=== PATIENT | female | born 1960 | race Caucasian/White ===

== ENCOUNTER 2017-11-20 13:21 | Inpatient (IN) | payer OTHER ==
[~2017-11-20] VITALS: Ht 160 cm; Wt 75.0 kg
[~2017-11-20 13:21] MED LIST: AUGMENTIN 500-1 EACH PO; CIPRO500 M1 PO; FLAGYL500 MG PO; PERCOCET 5-3251 EACH PO; TRAMADOL HCL50 M1 PO; VIBRAMYCIN100 MG PO
--- NOTE | 2017-11-20 13:54 | ED PSYCHIATRIC COMPLAINT ---
History of Present Illness General Chief Complaint: Psychiatric Related Complaint Stated Complaint: +SI Source: patient Exam Limitations: no limitations Vital Signs & Intake/Output Vital Signs & Intake/Output Vital Signs Date Time Temp Pulse Resp B/P B/P Pulse O2 O2 Flow FiO2 Mean Ox Delivery Rate 11/20 1930 98.1 74 16 124/78 98 Room Air 11/20 1724 98.5 68 18 120/70 98 Room Air 11/20 1541 98.1 80 16 128/84 99 Room Air 11/20 1348 Room Air 11/20 1334 98.4 76 14 130/86 Allergies Coded Allergies: nitrofurantoin (From MACRODANTIN) (Severe, SOB 03/27/16) amoxicillin (From AUGMENTIN) (Mild, LIGHT SENSITIVITY R/T HX OF SJOGRENS SYNDROME 03/27/16) clavulanic acid (From AUGMENTIN) (Mild, LIGHT SENSITIVITY R/T HX OF SJOGRENS SYNDROME 03/27/16) latex (Mild, RASH 03/27/16) Reconcile Medications Ciprofloxacin HCl (Cipro) 500 MG TABLET 1 TAB PO BID DIVERTICULITIS Doxycycline Hyclate (Vibramycin) 100 MG CAPSULE 1 CAP PO BID DOG BITE Metronidazole (Flagyl) 500 MG TABLET 1 TAB PO BID DIVERTICULITIS Metronidazole (Flagyl) 500 MG TABLET 1 TAB PO TID DOG BITE Oxycodone HCl/Acetaminophen (Percocet 5-325 MG Tablet) 5 MG-325 MG TABLET 1 TAB PO BID PRN PAIN Tramadol HCl 50 MG TABLET 1 TAB PO BIDP PRN PAIN Triage Note: PT BIBA VOLUNTARILY FROM MD OFFICE WITH C/O +SI. PT STATES NO PLAN, BUT HAS PREVIOUS ATTEMPTS BY OD ON SLEEPING PILLS. VSS. PT ARRIVES A&O, TEARFUL Triage Nurses Notes Reviewed? yes Onset: Abrupt Duration: week(s):, constant, getting worse Timing: recent history Severity: moderate, severe HPI: 57-year-old female comes into the emergency room for further evaluation of the depression and hopelessness. She reports that she has not been doing well for quite some time. She has a lot of stressors in her life. She lost her job of 30 years as well as her relationship.. She lost her mother. Denies any alcohol or drug use. She is very overwhelmed does not know how she is going to do everything. Lives by herself. According to report there was some SI comments made. (Jean PA,Buckner) Past History Medical History Any Pertinent Medical History? 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 No (Percy Oliver) Review of Systems Review of Systems Constitutional: Reports: no symptoms. EENTM: Reports: no symptoms. Respiratory: Reports: no symptoms. Cardiovascular: Reports: no symptoms. GI: Reports: no symptoms. Genitourinary: Reports: no symptoms. Musculoskeletal: Reports: no symptoms. Skin: Reports: no symptoms. Neurological/Psychological: Reports: see HPI. Hematologic/Endocrine: Reports: no symptoms. Immunologic/Allergic: Reports: no symptoms. All Other Systems: Reviewed and Negative (Percy Oliver) Physical Exam Physical Exam General Appearance: well developed/nourished, mild distress Head: atraumatic Eyes: Bilateral: normal appearance. Ears, Nose, Throat: normal ENT inspection, hearing grossly normal Neck: normal inspection Respiratory: no respiratory distress Cardiovascular: regular rate/rhythm Extremities: normal range of motion Neurological/Psychiatric: alert, normal mood/affect Appearance/Memory/Insight: appropriate appearance Behavoir/Eye Contact/Speech: cooperative Thoughts/Hallucinations: no apparent hallucination Skin: intact, normal color, warm/dry SAD PERSONS SAD PERSONS Response Value Age <19 or >45 years? yes 1 Depression/Hopelessness? yes 2 Rational Thinking Loss? yes 2 Single//? yes 1 Total 6 SAD PERSONS Done? yes (Percy Oliver) Progress Differential Diagnosis: dementia, drug intoxication, drug overdose, drug withdrawal Plan of Care: Orders Procedure Date/time Status Regular Diet 11/21 B Active Regular Diet 11/20 D Complete Lab Add-on Test 11/20 1616 Active URINE 11/20 1615 Active Patient Data - inpatient psych 11/20 1605 Active Admit to inpatient psych 11/20 1605 Active Intake & Output 11/20 1543 Active TSH REFLEX 11/20 1409 Active LIPID PANEL 11/20 1409 Active GLYCOSYLATED HGB 11/20 1409 Active ED CRISIS PSYCH CONSULT 11/20 1405 Active Continuous Observation Monitor 11/20 1324 Active URINE DRUGS OF ABUSE 11/20 1324 Complete ETHANOL 11/20 1324 Active COMPREHENSIVE METABOLIC PANEL 11/20 1324 Active CBC WITHOUT DIFFERENTIAL 11/20 1324 Complete Vital Signs 11/20 UNK Active Nursing Misc 11/20 UNK Active Alternative Nursing Therapy 11/20 UNK Active Activity/Ambulation 11/20 UNK Active Current Medications Sig/Deny Start time Last Medication Dose Stop Time Status Admin Desvenlafaxine 100 MG DAILY 11/21 09 AC Succinate (Pristiq) Estrogens Conjugated 0.625 MG DAILY 11/21 09 AC (Premarin) Cyclosporine 1 GTT Q12 11/20 2099 AC (Restasis Ophth Emulsion) Gabapentin 400 MG AT BEDTIME 11/20 2100 AC (Neurontin) Non-Formulary 1 UNIT TID 11/20 2100 UNVr Medication (NON FORMULARY) Diphenhydramine HCl 25 MG Q6P PRN 11/20 1630 AC (Benadryl) Diphenhydramine HCl 25 MG Q6P PRN 11/20 1630 AC (Benadryl) Acetaminophen 650 MG Q6P PRN 11/20 1615 AC (Tylenol) Al Hydroxide/Mg 30 ML Q4-6 PRN PRN 11/20 1615 AC Hydroxide (Maalox Plus) Haloperidol 5 MG Q6P PRN 11/20 1615 AC (Haldol) Haloperidol 5 MG Q6P PRN 11/20 1615 AC (Haldol) Lorazepam 2 MG Q6P PRN 11/20 1615 AC (Ativan) Lorazepam 0.5 MG Q8P PRN 11/20 1615 AC (Ativan) 11/27 1614 Magnesium Hydroxide 30 ML AT BEDTIME PRN 11/20 1615 AC (Milk Of Magnesia) Laboratory Tests 11/20/17 1428: Urine Opiates Screen < 100, Methadone Screen 41, Barbiturate Screen < 60, Ur Phencyclidine Scrn < 6.00, Amphetamines Screen < 100, U Benzodiazepines Scrn < 85, Urine Cocaine Screen < 50, Urine Cannabis Screen < 5.00 11/20/17 1409: Anion Gap 9, Estimated GFR > 60, BUN/Creatinine Ratio 18.3, Glucose 86, Hemoglobin A1c Pending, Calcium 9.7, Total Bilirubin 0.7, AST 19, ALT 17, Alkaline Phosphatase 79, Total Protein 7.4, Albumin 4.6, Globulin 2.8, Albumin/ Globulin Ratio 1.6, Triglycerides 81, Cholesterol 247 H, LDL Cholesterol, Calc 121, HDL Cholesterol 131 H, Cholesterol/HDL Ratio 1.9, TSH &T3 &Free T4 Intrp 1.030, CBC w Diff NO MAN DIFF REQ, RBC 4.63, MCV 88.3, MCH 30.0, MCHC 34.0, RDW 13.2, MPV 8.4, Gran % 67.3, Lymphocytes % 24.6, Monocytes % 6.5, Eosinophils % 1.0, Basophils % 0.6, Absolute Granulocytes 4.5, Absolute Lymphocytes 1.6, Absolute Monocytes 0.4, Absolute Eosinophils 0.1, Absolute Basophils 0, Serum Alcohol < 10.0 (Percy Oliver) Departure Departure Disposition: STILL A PATIENT Condition: Stable Clinical Impression Primary Impression: Depression Referrals: Kym ECHEVERRIA,Tonia Robertson (PCP/Family) Departure Forms: Customer Survey General Discharge Information Psych Admission Note Psychiatric Admission: I have seen and evaluated RUSSELL PITT. I have also reviewed all the pertinent lab results and diagnostic results. RUSSELL PITT will be admitted to our inpatient Psychiatric unit for treatment and care. (Percy Oliver) PA/INSPECTOR INSULATION Co-Sign Statement Statement: ED Attending supervision documentation- [] I saw and evaluated the patient. I have also reviewed all the pertinent lab results and diagnostic results. I agree with the findings and the plan of care as documented in the PA's/INSPECTOR INSULATION's documentation. [X] I have reviewed the ED Record and agree with the PA's/INSPECTOR INSULATION's documentation. [] Additions or exceptions (if any) to the PAs/INSPECTOR INSULATION's note and plan are summarized below: [] (Sanjay Oh DO
--- NOTE | 2017-11-20 14:30 | ED PSY CRISIS COLLATERAL NOTE ---
Collateral Note Collateral Note Family/Inform/Shaun Contacts: Patient's treating psychiatrist, Dr. Saenz referred patiient to [facility] , reporting that patient was extremely anxious and depressed, and feeling helpless, hopeless and overwhelmed. Patient has required hospitalization many times in the past. Patient has diagnosis of Mood disorder, with depression and bipolar disorder. Patient reports that she has constant pain issues, and is in a desperate place. Patient recently changed the locks on all her doors for safety.
[2017-11-20 14:35] LABS: ABSOLUTE BASOPHIL COUNT 0 /CUMM (0.0-0.2); ABSOLUTE EOSINOPHIL COUNT 0.1 /CUMM (0.0-0.7); ABSOLUTE GRANULOCYTE CT 4.5 /CUMM (1.4-6.5); ABSOLUTE LYMPH COUNT 1.6 /CUMM (1.2-3.4); ABSOLUTE MONOCYTE COUNT 0.4 /CUMM (0.10-0.60); BASOPHIL % 0.6 % (0.0-2.0); GRANULOCYTE % 67.3 % (42.2-75.2); HEMATOCRIT 40.9 % (37-47); MEAN CORPUSCULAR VOLUME 88.3 FL (81.0-99.0); MEAN PLATELET VOLUME 8.4 FL (7.4-10.4); PLATELET COUNT 304 /CUMM (130-400); RBC DISTRIBUTION WIDTH 13.2 % (11.5-14.5); RED BLOOD CELL CT 4.63 /CUMM (4.20-5.40); WHITE BLOOD CELL COUNT 6.6 /CUMM (4.8-10.8)
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
[2017-11-20 21:30] VITALS: BP 152/76
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
--- NOTE | 2017-11-20 23:27 | Admission Certification ---
Admission Certification Certification Statement - As attending physician, I certify that at the time of - admission, based on clinical presentation, severity of - symptoms, need for further diagnostic testing and - therapeutic interventions, and risk of adverse outcomes - without in-hospital treatment, in my clinical assessment, - this patient requires an acute hospital stay for a minimum - of two nights or longer. I have also considered psychsocial - factors such as support system, advanced age, financial - issues, cognitive issues, and failed out-patient treatments, - past re-admission history, safety of patient, and lack of - compliance as applicable. Specific rationale supporting this admission is: Depression
[2017-11-20] MEDS ORDERED: GABAPENTIN400 M2 PO (23:56)
[2017-11-20] MEDS ORDERED: PRISTIQ ER100 MG (23:57)
[2017-11-21 07:30] VITALS: BP 126/92
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
[2017-11-21 12:11] VITALS: BP 119/78
--- NOTE | 2017-11-21 15:42 | SOCIAL WORKER PROG NOTE PSYCH ---
Social Work Progress Note Progress Note Crisis internet marketing manager Neisha Georges attempted to obtain the pt's social history but pt was meeting with Dr. Herrera.
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
[2017-11-21 16:06] VITALS: BP 100/60
[2017-11-21 19:42] VITALS: BP 117/61
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
[2017-11-22 07:45] VITALS: BP 97/59
[2017-11-22 12:11] VITALS: BP 109/66
--- NOTE | 2017-11-22 14:27 | CP SOUTH PROGRESS NOTE PSYCH ---
Psych (Inpt) Progress Note Progress Note Include the following elements, when applicable: Involvement in the active treatment of the patient with behavioral observations of the patient and the patient's response to the treatment. Review of the ongoing treatment process in the context of the treatment plan. Indication of how multi-disciplinary staff members are carrying out the treatment plan. Plans for future interventions and recommendations for revision of the treatment plan. Liaison with other physicians/providers. Progress Note: The patient is a 57-year-old woman who was admitted on 11/20/17. She carries the diagnosis depression, rule out depression due to general medical condition, rule out personality change due to traumatic brain injury, rule out cognitive disorder due to traumatic brain injury, rule out illness anxiety disorder. The patient has Sjogren's syndrome. She was continued on Pristiq and lithium was added. Current medication list reviewed. Case discussed with RN. Staff reports that the patient sees Dr. Saenz as an outpatient. Patient is here because she had reported that her medications were not really working. She presented with increased depression with suicidal ideation to overdose on medication. She has Sjogren's syndrome. She reportedly filed a complaint that her eye care is not being managed appropriately here. Wants discharge today. Refused offer for a three-day paper. Described as calm and cooperative. Vital signs stable. Denying suicidal ideation. Patient seen at 11:50 AM. She was asleep in her room but got up and met with me in office. She feels tired but otherwise feels well. She appears awake and alert. Reports she slept really well last night. She had headaches for 2 days. She is wearing a hat. States she is on lithium here and is feeling well. Complains of dry eyes. She likes to use an [id number] treatment called Josie 128 but she is not able to have anyone bring it in here. She does not think that artificial tears here will work but I ordered it for her prn. She is eager for discharge. Affect is calm and blunted. Rates sad mood and anxiety both 0/10. Denies feeling hopeless, helpless, worthless or guilty. Denies active and passive suicidal ideation. Denies homicidal ideation. Denies auditory and visual hallucinations and paranoid ideation. Appetite is excellent. Energy: She would like to walk outside. Tolerating medications well , without complaint. IMPRESSION: Slow progress. Continue present treatment plan. Monitor response to artificial tears prn. We will look into discharge early next week.
[2017-11-22 15:57] VITALS: BP 118/64
[2017-11-22 19:50] VITALS: BP 118/70
[2017-11-23 08:31] VITALS: BP 101/69
[2017-11-23 12:28] VITALS: BP 113/72
--- NOTE | 2017-11-23 15:08 | CP SOUTH PROGRESS NOTE PSYCH ---
Psych (Inpt) Progress Note Progress Note Include the following elements, when applicable: Involvement in the active treatment of the patient with behavioral observations of the patient and the patient's response to the treatment. Review of the ongoing treatment process in the context of the treatment plan. Indication of how multi-disciplinary staff members are carrying out the treatment plan. Plans for future interventions and recommendations for revision of the treatment plan. Liaison with other physicians/providers. Progress Note: Case discussed with nurse. Nurse reports that the patient reported she slept well. Rated pain 5/10 at hip and back. Denying suicidal ideation. Vital signs stable. Reported dry eyes. Patient seen at 9:58 AM. She was in the lounge watching TV with peers but got up and met with me in office. Feels good. Has no complaints. She thinks she has reached her goal, to change her medication, and she is looking forward to discharge. Affect is calm and euthymic. Describes mood as "I really feel so even, feel stable. I really feel great." Major risks and benefits of lithium were reviewed with the patient, including risk of thyroid disease, kidney disease and cardiac conduction problems. Rates sad mood 5/10, stating "I'm good." Rates anxiety 0/10. Denies feeling hopeless, helpless, worthless or guilty. Denies active and passive suicidal ideation. Denies homicidal ideation. Denies auditory and visual hallucinations and paranoid ideation. Reports she slept fine/well. Reports appetite is always good. Energy is good and she is hoping to get out there and walk. Tolerating medications well, without complaint. I ordered an EKG. I ordered a lithium level for the morning. Patient has suggested a friend for a possible family meeting. Patient is interested in IOP and she would like to be discharged tomorrow. IMPRESSION: Slow progress. Continue present treatment plan. Anticipate likely discharge early this week.
[2017-11-23 16:01] VITALS: BP 100/57
[2017-11-23 19:49] VITALS: BP 115/60
[2017-11-24 07:36] VITALS: BP 114/75
--- NOTE | 2017-11-24 10:58 | SOCIAL WORKER PROG NOTE PSYCH ---
Social Work Progress Note Progress Note Discussed patient in team. Report from the weekend, is that she appears ready to return home. Met with Angelina. She said she was looking to go home today. Stated she feels she had a "seemless" transition to [place]. Reports she also had a reduction in her Ativan and hopes to continue working on possibly getting it discontinued in the future. She said she feels safe to go home and she is not suicidal. Talked about IOP and if it would be something she could afford. She was interested, but after hearing that the co-pay for Medicare would be around 40.00 a session she chose not to due to having a tight budget. She will return to seeing Dr. Saenz in outpatient. Talked about whether or not to involve her ex in a meeting / discussion here. She would really rather not if it's not necessary. I told her that I was respecting her wishes about that. They don't live together and are not a couple. She expressed how nice everyone was to her here. She is looking to follow up on further testing for her memory. Possibly a neurologist? I suggested she meet with her PCP for a recommendation. Offered to schedule her an appt. with Dr. Mejía. She was open to that. Called [facility] and scheduled her an appt. with Dr. Mejía for 11/25 10:30am. Called [facility] and scheduled an intake for 12/01 11am with Katerine Agee. She'll see Dr. Garay on 12/04 10:30am and then see Dr. Saenz 12/22 8am.
[2017-11-24] MEDS ORDERED: ATIVAN0.5 M1 PO (12:23)
[2017-11-24 12:24] VITALS: BP 130/81
[2017-11-24] MEDS ORDERED: RELPAX40 M1 PO (12:24)
[2017-11-24] MEDS ORDERED: LACRISERT5 MG OU (12:25)
[2017-11-24] MEDS ORDERED: RESTASIS1 EACH OU (12:27)
[2017-11-24] MEDS ORDERED: PREMARIN0.625 M1 PO (12:29)
[2017-11-24] MEDS ORDERED: ARTIFICIAL TEA1 EACH OPH (12:31)
[2017-11-24] MEDS ORDERED: LITHIUM CARBON150 M1 PO (12:31)
[2017-11-24] MEDS ORDERED: GABAPENTIN100 M2 PO (12:31)
[2017-11-24] MEDS ORDERED: GABAPENTIN300 M2 PO (12:31)
--- NOTE | 2017-11-24 12:39 | Patient Discharge Instructions ---
Psych Discharge Inst General Discharge Information Reason for Admission: Feeling hopeless. Requested a medication adjustment. Psy Discharge Primary Diag+ Major depr rec severe Psy Discharge Secondary Diag+ Sjogren's syndrome Migraines Hx GERD Hx hiatal hernia Hx diverticulosis Hx fibromyalgia Hx restless leg syndrome Constipation Summary Tests/Major Procedures Lab ALT 17 U/L 11/20/17 1409 AST 19 U/L 11/20/17 1409 BUN 11 mg/dL 11/20/17 1409 Calcium 9.7 mg/dL 11/20/17 1409 Carbon Dioxide 29 mmol/L 11/20/17 1409 Chloride 103 mmol/L 11/20/17 1409 Cholesterol 247 MG/DL H 11/20/17 1409 Cholesterol/HDL Ratio 1.9 % 11/20/17 1409 Creatinine 0.6 mg/dL 11/20/17 1409 Estimated GFR > 60 ml/min 11/20/17 1409 Glucose 86 mg/dL 11/20/17 1409 HDL Cholesterol 131 mg/dL H 11/20/17 1409 Hemoglobin A1c 5.2 % 11/20/17 1409 LDL Cholesterol, Calc 121 mg/dL 11/20/17 1409 Potassium 4.2 mmol/L 11/20/17 1409 Sodium 141 mmol/L 11/20/17 1409 TSH &T3 &Free T4 Intrp 1.030 uIU/mL 11/20/17 1409 Triglycerides 81 mg/dL 11/20/17 1409 Hct 40.9 % 11/20/17 1409 Hgb 13.9 G/DL 11/20/17 1409 Plt Count 304 /CUMM 11/20/17 1409 WBC 6.6 /CUMM 11/20/17 1409 [place] < 0.2 mmol/L L 11/24/17 0633 Serum Alcohol < 10.0 MG/DL 11/20/17 1409 Urine Test NEGATIVE 11/21/17 0247 EKG 11/23/17 showed sinus rhythm @ 78, no significant change since previous tracing, QT 372, QTc 424. Studies Pending at MA: None. Patient Instructions Contact Information Your Psychiatrist on [facility] was Javier ECHEVERRIA,Mike * If you are experiencing an emergency related to this hospitalization, please call [phone] to contact the treating psychiatrist or the psychiatrist-on- call. * To Request a copy of your medical records, please contact the Medical Records Department at [phone]. * To request results of studies pending at the time of discharge, please call [phone]. * Continue your Medications until directed to stop by your Healthcare provider. General Medication Information Please continue to take your new medications and your continued home medications , unless otherwise indicated on your discharge medication list, or unless directed by your MD or HEALTH ADMINISTRATOR to stop them. Special Instructions Diet Regular Activity Normal Other Inst/Recommendations See PCP about labs, ignacia. for repeat cholesterol.See Dr. Pena re:memory. - Tobacco Use Treatment Offered Post DC Medications Offered: Not Applicable Post DC Tobacco Treatment Plan: Not Applicable - EtOH/Drug Use D/O Treatment Offered Post DC Medications Offered: NA-No EtOH/Drug Use D/O Post DC EtOH/SubAbuse [place] Plan: NA-No EtOH/Drug Use D/O Metabolic Screening ([x]) Not Applicable, patient not on a neuroleptic. OR () Patient on a neuroleptic(s) . Enter below results for Hemoglobin A1C, and lipid panel if obtained during the last 365 days. BMI: 27.400 Blood Pressure: 130/81 Laboratory Results From [place] EHR (If applicable): Advance Directives Does the Patient have Medical Advance Directives No/Refused further info Does Pt have Psychiatric Advance Directives? No/Refused further info Does Patient have a Designated Surrogate Decision Maker: No Information About Psychiatric Advance Directives Provided? Refused Discharge Plan Post Hospital Treatment Plan: Returning home. Follow up with OPS. Follow up with PCP Dr. Mejía. Follow up with neurologist, Dr. Gimenez.
--- NOTE | 2017-11-24 13:47 | SOCIAL WORKER PROG NOTE PSYCH ---
Social Work Progress Note Faxed Referral(s) Referred To: OPS Transition of Care Documents sent: Health Summary Faxed to: [facility] Fax #: [phone] Faxed by: Maye Bui Date faxed: 11/24/17 Time Faxed: [phone]
--- NOTE | 2017-11-24 15:22 | CP SOUTH PROGRESS NOTE PSYCH ---
Psych (Inpt) Progress Note Progress Note Include the following elements, when applicable: Involvement in the active treatment of the patient with behavioral observations of the patient and the patient's response to the treatment. Review of the ongoing treatment process in the context of the treatment plan. Indication of how multi-disciplinary staff members are carrying out the treatment plan. Plans for future interventions and recommendations for revision of the treatment plan. Liaison with other physicians/providers. Progress Note: Case and treatment plan discussed in team meeting. Staff reports that the patient is somatically-focused. Complained of migraine. Says she is ready to go. Patient seen at 12:12 PM. States "I'm good, thank you, and excited." Affect is calm and euthymic. Complains of decreased memory. I advised patient to speak with her neurologist, Dr. Gimenez, about this. Patient believes she is thinking more clearly now. Reports mood is good stating "I feel very stable." Rates sad mood 5/10, I'm just even." Rates anxiety 5/10. Denies feeling hopeless, helpless, worthless or guilty. Denies active and passive suicidal ideation. Denies homicidal ideation. Denies auditory and visual hallucinations and paranoid ideation. Reports her sleep could always improve and last night's sleep was mediocre. Appetite is described as good, as always. Energy is good but she feels stagnant here. Tolerating medications well, without complaint. Feels ready and safe for discharge. IMPRESSION: Condition improved. Okay for discharge today to home with follow-up at OPS.
--- NOTE | 2017-11-24 15:27 | DISCHARGE SUMMARY REPORT-PSYCH ---
Visit Information Visit Dates/Diagnosis' Admission Date: 11/20/17 Discharge Date: 11/24/17 Reason for Admission: Feeling hopeless. Requested a medication adjustment. Psy Discharge Primary Diag: Major depr rec severe Psy Discharge Secondary Diag: Sjogren's syndrome Migraines Hx GERD Hx hiatal hernia Hx diverticulosis Hx fibromyalgia Hx restless leg syndrome Constipation Hospital Course Significant Lab Findings: Lab ALT 17 U/L 11/20/17 1409 AST 19 U/L 11/20/17 1409 BUN 11 mg/dL 11/20/17 1409 Calcium 9.7 mg/dL 11/20/17 1409 Carbon Dioxide 29 mmol/L 11/20/17 1409 Chloride 103 mmol/L 11/20/17 1409 Cholesterol 247 MG/DL H 11/20/17 1409 Cholesterol/HDL Ratio 1.9 % 11/20/17 1409 Creatinine 0.6 mg/dL 11/20/17 1409 Estimated GFR > 60 ml/min 11/20/17 1409 Glucose 86 mg/dL 11/20/17 1409 HDL Cholesterol 131 mg/dL H 11/20/17 1409 Hemoglobin A1c 5.2 % 11/20/17 1409 LDL Cholesterol, Calc 121 mg/dL 11/20/17 1409 Potassium 4.2 mmol/L 11/20/17 1409 Sodium 141 mmol/L 11/20/17 1409 TSH &T3 &Free T4 Intrp 1.030 uIU/mL 11/20/17 1409 Triglycerides 81 mg/dL 11/20/17 1409 Hct 40.9 % 11/20/17 1409 Hgb 13.9 G/DL 11/20/17 1409 Plt Count 304 /CUMM 11/20/17 1409 WBC 6.6 /CUMM 11/20/17 1409 [place] < 0.2 mmol/L L 11/24/17 0633 Serum Alcohol < 10.0 MG/DL 11/20/17 1409 Urine Test NEGATIVE 11/21/17 0247 EKG 11/23/17 showed sinus rhythm @ 78, no significant change since previous tracing, QT 372, QTc 424. Course Complications: None. Consultations: Admission H&P was done by Dr. Howell on 11/20/17. Dr. Howell noted: "Assessment: 57 yo F with h/o Sjogren's syndrome, GERD, hiatal hernia, is admitted to Inpatient psychiatry for worsening depression. - Continue management as per Psych team. - Treat constipation with milk of mag and senna S. - Recent Enterococcal UTI was treated with Cipro, symptoms have improved despite not being antibiotic of choice for Enterococcus. Will continue to monitor for now. - If recurrent urinary symptoms, check a urinalysis. - Resume home meds for dry eyes due to Sjogren's - restasis, lacrisert and cevimeline. - Patient is requesting for her hat - as light bothers her eyes, so she keeps it on. - Migraine - she uses relpax as needed. If needed will consider imitrex ( available with pharmacy). DVT ppx - low risk, early ambulation." Allergies: Coded Allergies: nitrofurantoin (From MACRODANTIN) (Severe, SOB 03/27/16) amoxicillin (From AUGMENTIN) (Mild, LIGHT SENSITIVITY R/T HX OF SJOGRENS SYNDROME 03/27/16) clavulanic acid (From AUGMENTIN) (Mild, LIGHT SENSITIVITY R/T HX OF SJOGRENS SYNDROME 03/27/16) latex (Mild, RASH 03/27/16) Hospital Course/TX Response: The patient was monitored on the unit for safety and mood disorder. She participated in multimodal treatments on the unit. HS Neurontin dose was increased. [place] carbonate was added as an augmenting agent to antidepressant. The patient is being issued a prescription for daytime Neurontin prn. Mood and affect have improved. Patient now maintains that she was not suicidal prior to admission. Progress note from date of discharge, 11/24/17: "Case and treatment plan discussed in team meeting. Staff reports that the patient is somatically-focused. Complained of migraine. Says she is ready to go. Patient seen at 12:12 PM. States "I'm good, thank you, and excited." Affect is calm and euthymic. Complains of decreased memory. I advised patient to speak with her neurologist, Dr. Gimenez, about this. Patient believes she is thinking more clearly now. Reports mood is good stating "I feel very stable." Rates sad mood 5/10, I'm just even." Rates anxiety 5/10. Denies feeling hopeless, helpless, worthless or guilty. Denies active and passive suicidal ideation. Denies homicidal ideation. Denies auditory and visual hallucinations and paranoid ideation. Reports her sleep could always improve and last night's sleep was mediocre. Appetite is described as good, as always. Energy is good but she feels stagnant here. Tolerating medications well, without complaint. Feels ready and safe for discharge. IMPRESSION: Condition improved. Okay for discharge today to home with follow-up at OPS." Discharge HBIPS - Tobacco Use Treatment Offered Post DC Medications Offered: Not Applicable Post DC Tobacco Treatment Plan: Not Applicable - EtOH/Drug Use D/O Treatment Offered Post DC Medications Offered: NA-No EtOH/Drug Use D/O Post DC EtOH/SubAbuse TX Plan: NA-No EtOH/Drug Use D/O Metabolic Screening - Screen if on a Neuroleptic Medication - Metabolic screening should include: - Blood Pressure, BMI, Glucose or Hgb A1c, & a - Lipid profile from within the past 365 days. Metabolic Screening ([x]) Not Applicable, patient not on a neuroleptic. OR () Patient on a neuroleptic(s) . Enter below results for Hemoglobin A1C, and lipid panel if obtained during the last 365 days. BMI: 27.400 Blood Pressure: 130/81 Laboratory Results From [place] EHR (If applicable): Discharge Instructions General Discharge Information Multiple Neuroleptics: ([x]) Not Applicable OR Document below three failed attempts at monotherapy, or a plan to taper to monotherapy, or augmentation of Clozapine. () Discharge Diet Regular Discharge Activity Normal DC Disposition: Returning to home. Referrals Ordered Referrals Provider Referral 11/25/17 For Groups: [facility] Multiple Locations Outpatient Psychiatry [facility] appt. with Dr. Mejía 11/25/17 10:30am [address] [place] [address] Provider Referral 12/01/17 For Groups: Outpatient Psychiatry [facility] Intake 12/01/17 11am with Katerine Zamora [address] [place] [address] Provider Referral 12/04/17 For Groups: Outpatient Psychiatry [facility] appt. with Dr. Garay 12/04/17 10:30am [address] [place], [place] [id number] Provider Referral 12/22/17 For Groups: Outpatient Psychiatry [facility] Psych[facility]ry appt. with Dr. Saenz 12/22/17 8am [address] [place] [address] Prescriptions Stop taking the following medications: Tramadol HCl (Tramadol HCl) 50 MG TABLET ORAL 2 x Daily as needed as needed for PAIN Qty = 8 Doxycycline Hyclate (Vibramycin) 100 MG CAPSULE ORAL TWICE DAILY Days = 10 Metronidazole (Flagyl) 500 MG TABLET ORAL THREE TIMES DAILY Days = 10 Ciprofloxacin HCl (Cipro) 500 MG TABLET ORAL TWICE DAILY Qty = 20 Metronidazole (Flagyl) 500 MG TABLET ORAL TWICE DAILY Qty = 20 Oxycodone HCl/Acetaminophen (Percocet 5-325 MG Tablet) 5 MG-325 MG TABLET ORAL TWICE DAILY as needed for PAIN Qty = 10 Gabapentin (Gabapentin) 400 MG CAPSULE ORAL Days = 0 Continue taking these medications: Desvenlafaxine Succinate (Pristiq ER) 100 MG TAB.ER.24H 100 Milligram Days = 0 Comments: Last Taken:11/24/17 Time:8am Lorazepam (Ativan) 0.5 MG TABLET 1 Tablet ORAL TWICE DAILY as needed for anxiety Comments: Last Taken:11/23/17 Time:8pm Eletriptan HBr (Relpax) 40 MG TABLET 1 Tablet ORAL as needed for migraine Comments: substituted in hospital Last Taken:11/21/17 Time:5pm Hydroxypropyl Cellulose (Lacrisert) 5 MG INSERT 1 CELL Both Eyes THREE TIMES DAILY Comments: Last Taken:11/24/17 Time:8am Cyclosporine (Restasis) 0.05 % DROPERETTE 1 Drop Both Eyes EVERY 12 HOURS Comments: Last Taken:11/20/17 Time:10pm Estrogenic Subst Conj (Premarin) 0.625 MG TABLET 1 Tablet ORAL DAILY Comments: Last Taken:11/24/17 Time:8am Start taking the following new medications: Gabapentin (Gabapentin) 300 MG CAPSULE 2 Capsule ORAL AT BEDTIME Qty = 28 No Refills Comments: Last Taken:11/23/17 Time:8pm [place] Carbonate ([place] Carbonate) 150 MG CAPSULE 1 Capsule ORAL TWICE DAILY Qty = 28 No Refills Comments: Last Taken:11/24/17 Time:8am Dextran 70/Hypromellose (Artificial Tears) 1 EACH DROPERETTE 2 Drop In the eye EVERY 4 HOURS NEEDED as needed for dry eyes Qty = 1 No Refills Comments: Last Taken:11/24/17 Time:8am Gabapentin (Gabapentin) 100 MG CAPSULE 2 Capsule ORAL DAILY as needed for anxiety Qty = 28 No Refills Comments: not given in hospital Other Inst/Recommendations See PCP about labs, ignacia. for repeat cholesterol.See Dr. Pena re:memory. Studies Pending at Discharge None. Copies To: Letty ECHEVERRIA,Caro GARAY MD,MELANIE
--- NOTE | 2017-12-05 09:45 | OP PSYCH PROGRESS NOTE ---
Psych (Outpt) Progress Note Encounter Encounter Type Medication Management Date of Group or Service: 12/05/17 Time of Group or Service: 09 Patient Education Performed: Yes How taught: Verbal Information Taught: Discussed risk/benefit of taking her prescibed medications, [place], gabapentin, pristiq, ativan prn, she is well informed, no changes made , she feels [place] " might be helping her depression" She has no sideeffects to note, aware needs to drink water at leasr 6-8 glasses of water part of her lithium TX. Subjective 57 years old female, comes regularly for her scheduled appointment.Talks a lot about her disease " I have Sjogren's Disease. She knows and well informed about this disease. Lot of symptoms she is experiencing like severe dryness of the eyes and throat and a at [place] is managing this issue. She is also photophobic and and wears special glasses. She was hospitalized recently 2 weeks ago and was started on [place] then. She thought lithium might be helping her depression andwould like to continue as prescribed. Objective She suffers from Sjogren's Disease, she is well informed and very concerned of the progression, taking it in stride. Taking medications as prescribes by her ohpthalmologist, also a Dr. Malik at [facility] is treating her eyes which is 'very dry. She uses special glasses for her photophobia. Mental Status Exam Appearance Well Groomed Cooperativeness/Relatedness Cooperative Speech Soft, WNL Mood WNL Affect WNL Thoughts Logical Psychosis Absent Hallucinations Absent Cognition Intact Suicidal Ideation No Plan No Homicidal Ideation No Neurovegetative Symptoms # hrs of Sleep/Day 6.0 Appetite Good Energy Low Interest Good Concentration Good Insight Angelina is insightful, fully informed and aware of her illness and treatment, compliant to treatment recommendations. Medication List Current Psychiatric Med(s): Pristiq 100 mg mg daily, lithium 150mg twice a day, gabapentin 600mg at bedtime, 200mg po daily prn for anxiety, ativan prn 0.5mg bid prn. spent> 50% of the time discussing treatment plan, medication education, support as well Diagnosis: MDD F32.2 History of Sjogren's Syndrome ( see physical exam ) Next appt. , she prefers to come every 3 months.
== END 2017-11-24 13:20 | DRG 881 ==
LOC: ERH 13:21 → CP SOUTH 16:05 → ERHI 16:05 → CP SOUTH 20:04
PROVIDERS: Physician Assistant Medical
DX: F32.9 Major depressive disorder, single episode, unspecified (principal); M35.00 Sjogren syndrome, unspecified; G43.909 Migraine, unspecified, not intractable, without status migrainosus; K21.9 Gastro-esophageal reflux disease without esophagitis; K57.90 Diverticulosis of intestine, part unspecified, without perforation or abscess without bleeding; M79.7 Fibromyalgia
CPT/HCPCS: 36415; 80307; 81025; 93005; 93010; G0480